=== PATIENT | male | born 1995 | race Hispanic/Latino ===

== ENCOUNTER 2020-12-05 07:51 | Inpatient (IN) | payer SELFPAY ==
[2020-12-05 09:23] LABS: #Basophils 0.1 thou/uL (0.0-0.2); #Lymphocytes 1.5 thou/uL (1.20-3.40); #Monocytes 0.6 thou/uL (0.11-0.59); %Basophils 1.4 % (0.0-1.0); %Eosinophils 0.1 % (0.0-10.0); %Monocytes 6.2 % (0.0-10.0); %Neutrophils 76.3 % (42.0-75.0); Hemoglobin 17.6 g/dL (14.0-18.0); Mean Corpuscular HGB CONC 33.1 g/dL (32.0-36.0); Mean Corpuscular Hemoglobin 30.5 pg (27.0-31.0); Mean Platelet Volume 9.5 fL (7.4-10.4); Platelet Count 193 thou/uL (130-400); RBC Distribution Width 11.7 % (11.5-14.5); Red Blood Cell (RBC) Count 5.76 mill/uL (4.70-6.10); White Blood Cell (WBC) Count 9.2 thou/uL (4.8-10.8)
[2020-12-05] MEDS ORDERED: Dexamethasone 10 MG/ML VIAL ONE (09:36)
[2020-12-05 09:44] LABS: Actual Bicarbonate (HCO3v) 22 mEq/L (22-28); Analyzer IN Cardio ER; pH (venous) 7.52 (7.32-7.43)
[2020-12-05 09:45] LABS: Base Excess 0.7 mEq/L (-2.0 to +3.0); Hemoglobin (Hb) 16.8 g/dL (13.2-17.3)
[2020-12-05 09:46] LABS: Chloride (VBG) 100 mmol/L (98-106); Potassium (VBG) 4.08 mmol/L (3.70-5.30)
[2020-12-05 10:17] LABS: ALT (SGPT) 143 U/L (8-55); AST (SGOT) 85 U/L (5-34); Albumin 4.2 g/dL (3.5-5.0); Alkaline Phosphatase 84 U/L (40-110); Anion Gap 15 mmol/L (10-20); BUN (Urea Nitrogen) 16 mg/dL (8.9-20.6); Bilirubin, Total 1.5 mg/dL (0.2-1.2); Calc. Creatinine Clearance 0 mL/min (70-130); Calcium 9.2 mg/dL (7.8-10.44); Carbon Dioxide 26 mmol/L (22-29); Chloride 100 mmol/L (98-107); Globulin 3.7 g/dL (2.4-3.5); Glucose 92 mg/dL (70-105); Magnesium 2.3 mg/dL (1.6-2.6); Potassium 4.4 mmol/L (3.5-5.1); Protein, Total 7.9 g/dL (6.0-8.3); Sodium 137 mmol/L (136-145)
[2020-12-05] MEDS ORDERED: Iopamidol-370 76% 500 ML 1 ML ONE (10:35)
[2020-12-05] MEDS ORDERED: Guaifenesin DM 100-10/5 ML UDCUP PO PRN (10:52)
[2020-12-05] MEDS ORDERED: Ondansetron PF 4 MG/2 ML Vial IVP PRN (10:52)
[2020-12-05] MEDS ORDERED: Bisacodyl 10 MG SUPP PR PRN (10:52)
[2020-12-05] MEDS ORDERED: Senokot S 8.6-50 MG TAB PO PRN (10:52)
[2020-12-05] MEDS ORDERED: Calcium Carbonate 500 MG ChewTAB PO PRN (10:52)
[2020-12-05 11:49] LABS: SARS-CoV-2 NAA Rapid Test DETECTED (NotDetected)
[2020-12-05 11:56] VITALS: BMI 30.3
[2020-12-05] MEDS: methylPREDNISolone Sod Succ 40 MG VIAL IVP SCH ×2 (14:16→23:32)
[2020-12-05] MEDS: Benzonatate 100 MG CAP PO SCH ×2 (14:16→21:00)
[2020-12-05] MEDS: Albuterol 200 PUFF (6.7GM INHALER) INH SCH ×2 (18:39→21:00)
[2020-12-05] MEDS: Enoxaparin Sodium 40 MG/0.4 ML SYRINGE SC SCH (21:00)
[2020-12-05] MEDS: guaiFENesin ER 600 MG TAB PO SCH (21:00)
[2020-12-05] MEDS: Acetaminophen 325 MG TAB PO PRN (23:33)
[2020-12-06] MEDS: Albuterol 200 PUFF (6.7GM INHALER) INH SCH ×4 (01:53→19:29)
[2020-12-06] MEDS: methylPREDNISolone Sod Succ 40 MG VIAL IVP SCH (05:56)
[2020-12-06 07:24] LABS: #Monocytes 0.5 thou/uL (0.11-0.59); #Neutrophils 10.3 thou/uL (1.40-6.50); %Basophils 0.1 % (0.0-1.0); %Eosinophils 0.1 % (0.0-10.0); %Lymphocytes 8.2 % (21.0-51.0); %Monocytes 4.3 % (0.0-10.0); %Neutrophils 87.3 % (42.0-75.0); Hemoglobin 15.8 g/dL (14.0-18.0); Mean Corpuscular HGB CONC 33.4 g/dL (32.0-36.0); Mean Corpuscular Hemoglobin 31.1 pg (27.0-31.0); Mean Corpuscular Volume 92.9 fL (78.0-98.0); Mean Platelet Volume 8.8 fL (7.4-10.4); Platelet Count 246 thou/uL (130-400); RBC Distribution Width 11.5 % (11.5-14.5); Red Blood Cell (RBC) Count 5.09 mill/uL (4.70-6.10); White Blood Cell (WBC) Count 11.9 thou/uL (4.8-10.8)
[2020-12-06 07:43] LABS: Anion Gap 18 mmol/L (10-20); BUN (Urea Nitrogen) 14 mg/dL (8.9-20.6); Calc. Creatinine Clearance 182 mL/min (70-130); Carbon Dioxide 23 mmol/L (22-29); Chloride 101 mmol/L (98-107); Glucose 161 mg/dL (70-105); Potassium 4.3 mmol/L (3.5-5.1); Sodium 138 mmol/L (136-145)
[2020-12-06] MEDS: Benzonatate 100 MG CAP PO SCH ×3 (07:57→19:28)
[2020-12-06] MEDS: Folic Acid 1 MG TAB PO SCH (07:57)
[2020-12-06] MEDS: Multivitamin W/ Minerals 1 TAB PO SCH (07:58)
[2020-12-06] MEDS: Enoxaparin Sodium 40 MG/0.4 ML SYRINGE SC SCH (07:58)
[2020-12-06] MEDS: Thiamine 100 MG TAB PO SCH (07:58)
[2020-12-06] MEDS: guaiFENesin ER 600 MG TAB PO SCH ×2 (07:58→19:29)
[2020-12-06] MEDS ORDERED: FLU VACC QS2021-22(6MOS UP)/PF 60 MCG/0.5 ML SYRINGE IM ONE (09:00)
[2020-12-06] MEDS ORDERED: BARICITINIB 2 MG TAB PO SCH (09:00)
[2020-12-06] MEDS ORDERED: Dexamethasone 6 MG in Sodium Chloride 0.9% 50 ML IVPB SCH (11:40)
[2020-12-06] MEDS: Enoxaparin Sodium 100 MG/ML SYRINGE SC SCH (19:29)
[2020-12-06] MEDS: Acetaminophen 325 MG TAB PO PRN (20:10)
[2020-12-07] MEDS: Albuterol 200 PUFF (6.7GM INHALER) INH SCH ×4 (01:49→18:41)
[2020-12-07] MEDS: Dexamethasone 4 mg/ml Vial SLOW IVP SCH (08:34)
[2020-12-07] MEDS: Multivitamin W/ Minerals 1 TAB PO SCH (08:34)
[2020-12-07] MEDS: Thiamine 100 MG TAB PO SCH (08:34)
[2020-12-07] MEDS: Benzonatate 100 MG CAP PO SCH ×3 (08:34→20:21)
[2020-12-07] MEDS: guaiFENesin ER 600 MG TAB PO SCH ×2 (08:34→20:22)
[2020-12-07] MEDS: Folic Acid 1 MG TAB PO SCH (08:34)
[2020-12-07] MEDS: Enoxaparin Sodium 100 MG/ML SYRINGE SC SCH ×2 (08:34→20:22)
[2020-12-07] MEDS: Polyethylene Glycol 3350 17 GM Packet PO SCH (08:35)
[2020-12-08] MEDS: Albuterol 200 PUFF (6.7GM INHALER) INH SCH ×3 (03:30→14:08)
[2020-12-08] MEDS: Benzonatate 100 MG CAP PO SCH ×2 (08:08→14:07)
[2020-12-08] MEDS: Multivitamin W/ Minerals 1 TAB PO SCH (08:08)
[2020-12-08] MEDS: guaiFENesin ER 600 MG TAB PO SCH (08:08)
[2020-12-08] MEDS: Dexamethasone 4 mg/ml Vial SLOW IVP SCH (08:08)
[2020-12-08] MEDS: Folic Acid 1 MG TAB PO SCH (08:08)
[2020-12-08] MEDS: Thiamine 100 MG TAB PO SCH (08:08)
[2020-12-08] MEDS: Enoxaparin Sodium 100 MG/ML SYRINGE SC SCH (08:09)
[2020-12-08] MEDS: Cepastat Lozenges 1 LOZ PO PRN ×2 (08:10→14:07)
[2020-12-08] MEDS: Polyethylene Glycol 3350 17 GM Packet PO SCH (08:10)
[2020-12-08 09:13] VITALS: BP 138/83; TEMP 98.6
== END 2020-12-08 16:26 | disposition home or self-care (01) | DRG 177 ==
LOC: ERS 07:51 → T4-A 11:33
PROVIDERS: ADMIT Internal Medicine; ATTEND Family Medicine
PROC: 8E0ZXY6 Isolation (ICD-10-PCS; 2020-12-05)
PROC: XW0DXM6 Introduction of Baricitinib into Mouth and Pharynx, External Approach, New Technology Group 6 (ICD-10-PCS; principal; 2020-12-06)
DX: U07.1 COVID-19 (principal); J12.82 Pneumonia due to coronavirus disease 2019; J96.01 Acute respiratory failure with hypoxia; F17.210 Nicotine dependence, cigarettes, uncomplicated; Z71.6 Tobacco abuse counseling
CPT/HCPCS: 36415; 71045; 71275; 80048; 80053; 82805; 83605; 83735; 83880; 84484; 85025; 86140; 87040; 93005; 96374; J1100; J1650; J2920; Q9967; U0002